=== PATIENT | female | born 1955 | race Asian ===

== ENCOUNTER 2017-04-08 09:10 | Emergency (ER) | payer OTHER, MEDICARE ==
[~2017-04-08] VITALS: Ht 152.4 cm; Wt 42.5 kg
[2017-04-08] MEDS ORDERED: CEFTRIAXONE PMX 1GM/50ML 50 ML IVPB ONE (10:00)
[2017-04-08] MEDS ORDERED: SODIUM CHLORIDE FLUSH 10ML SYR IVF ONE (10:00)
[2017-04-08 10:20] LABS: HEMATOCRIT 39.2 % (34.6-47.8); HEMOGLOBIN 12.3 g/dL (11.7-16.4); WHITE BLOOD COUNT 4.2 x10^3/uL (3.4-10)
[2017-04-08 10:31] LABS: BLOOD UREA NITROGEN 12 mg/dL (7-18)
[2017-04-08] MEDS ORDERED: CEFTRIAXONE PMX 1GM/50ML 50 ML ONE (10:47)
[2017-04-08 11:31] VITALS: BP 161/80
== END 2017-04-08 11:33 | disposition home or self-care (01) ==
LOC: ED 09:48
DX: L03.114 Cellulitis of left upper limb (principal); Z99.2 Dependence on renal dialysis; Z88.8 Allergy status to other drugs, medicaments and biological substances
CPT/HCPCS: 36415; 80048; 82040; 83605; 85025; 87040; 96365; 99284; J0696

== ENCOUNTER 2017-09-15 19:41 | Emergency (ER) | payer MEDICARE, BC ==
[~2017-09-15] VITALS: Ht 152.4 cm; Wt 42.5 kg
[2017-09-15] MEDS ORDERED: METO25TA35 PO (20:13)
[2017-09-15 20:22] LABS: BASOPHILS # (AUTO) 0.03 x10^3/uL (0-0.1); BASOPHILS % (AUTO) 1 % (0-1); EOSINOPHILS # (AUTO) 0.44 x10^3/uL (0-0.4); EOSINOPHILS % (AUTO) 7 % (1-7); LYMPHOCYTES # (AUTO) 2.54 x10^3/uL (1-3.4); LYMPHOCYTES % (AUTO) 40 % (22-44); MD NO; MEAN CORPUSCULAR HEMOGLOBIN 31.3 pg (27.0-34.8); MEAN CORPUSCULAR HGB CONC 34.2 g/dL (32.4-35.8); MEAN CORPUSCULAR VOLUME 91.7 fL (80-100); MEAN PLATELET VOLUME 6.7 fL (7.4-10.4); MONOCYTES # (AUTO) 0.48 x10^3/uL (0.2-0.8); MONOCYTES % (AUTO) 8 % (2-9); NEUTROPHILS % (AUTO) 45 % (42-75); PLATELET COUNT 334 x10^3/uL (130-400); RED BLOOD COUNT 3.99 x10^6/uL (3.82-5.3); RED CELL DISTRIBUTION WIDTH 13.1 % (9.6-15.2)
[2017-09-15 20:35] LABS: ALANINE AMINOTRANSFERASE 9 U/L (12-78); ALBUMIN 3.2 g/dL (3.4-5.0); ANION GAP 12 mmol/L (5-15); CALCIUM 8.7 mg/dL (8.5-10.1); CHLORIDE 95 mmol/L (98-107); CREATININE 3.83 mg/dL (0.55-1.02)
[2017-09-15 20:39] LABS: ALKALINE PHOSPHATASE 212 U/L (45-117); BILIRUBIN,TOTAL 0.3 mg/dL (0.2-1.0); TOTAL PROTEIN 8.7 g/dL (6.4-8.2); TROPONIN I < 0.015 ng/mL (0.000-0.045)
[2017-09-15 21:58] VITALS: BP 138/64
== END 2017-09-15 22:04 | disposition home or self-care (01) ==
LOC: ED 21:07
DX: M25.512 Pain in left shoulder (principal); N18.4 Chronic kidney disease, stage 4 (severe); Z99.2 Dependence on renal dialysis
CPT/HCPCS: 36415; 71046; 80053; 84484; 85025; 93005; 99285

== ENCOUNTER 2018-03-30 09:21 | Emergency (ER) | payer BC, MEDICARE ==
[~2018-03-30] VITALS: Ht 152.4 cm; Wt 41.5 kg
[~2018-03-30 09:21] MED LIST: METO25TA35 PO
[2018-03-30] MEDS ORDERED: SODIUM CHLORIDE FLUSH 10ML SYR IVF ONE (10:00)
[2018-03-30 10:07] LABS: BASOPHILS # (AUTO) 0.15 x10^3/uL (0-0.1); BASOPHILS % (AUTO) 2 % (0-1); EOSINOPHILS # (AUTO) 0.38 x10^3/uL (0-0.4); EOSINOPHILS % (AUTO) 4 % (1-7); LYMPHOCYTES # (AUTO) 1.96 x10^3/uL (1-3.4); LYMPHOCYTES % (AUTO) 20 % (22-44); MD NO; MEAN CORPUSCULAR HEMOGLOBIN 30.6 pg (27.0-34.8); MEAN CORPUSCULAR HGB CONC 33.5 g/dL (32.4-35.8); MEAN CORPUSCULAR VOLUME 91.3 fL (80-100); MEAN PLATELET VOLUME 6.9 fL (7.4-10.4); MONOCYTES # (AUTO) 0.73 x10^3/uL (0.2-0.8); MONOCYTES % (AUTO) 8 % (2-9); NEUTROPHILS # (AUTO) 6.48 x10^3/uL (1.8-6.8); NEUTROPHILS % (AUTO) 67 % (42-75); PLATELET COUNT 384 x10^3/uL (130-400); RED BLOOD COUNT 3.49 x10^6/uL (3.82-5.3); RED CELL DISTRIBUTION WIDTH 13.7 % (9.6-15.2)
[2018-03-30 10:16] LABS: ALBUMIN 3.1 g/dL (3.4-5.0); ANION GAP 12 mmol/L (5-15); CHLORIDE 91 mmol/L (98-107); CREATININE 8.34 mg/dL (0.55-1.02)
[2018-03-30] MEDS ORDERED: POLYETHYLENE GLYCOL 17 GM PACKET PO ONE (11:00)
[2018-03-30 11:19] LABS: CULTURE INDICATED? YES; MICROSCOPIC AUTO
[2018-03-30] MEDS ORDERED: POLYETHYLENE GLYCOL 17 GM PACKET ONE (11:31)
[2018-03-30 11:58] VITALS: BP 121/75
== END 2018-03-30 12:29 | disposition home or self-care (01) ==
LOC: ED 09:38
DX: K59.00 Constipation, unspecified (principal)
CPT/HCPCS: 36415; 74021; 80048; 81001; 82040; 85025; 87086; 99285

== ENCOUNTER → 2018-10-16 | Outpatient (CLI) | payer BC, MEDICARE | END | disposition home or self-care (01) | LOC: CFH 12:47 | PROVIDERS: ATTEND Family Medicine | DX: Z12.31 Encounter for screening mammogram for malignant neoplasm of breast (principal) | CPT/HCPCS: 77067 ==

== ENCOUNTER 2019-03-09 11:44 | Emergency (ER) | payer BC, OTHER, MEDICARE ==
[~2019-03-09] VITALS: Ht 152.4 cm; Wt 44.7 kg
[2019-03-09] MEDS ORDERED: MECLIZINE CHEWABLE 25 MG TAB PO ONE (12:30)
[2019-03-09] MEDS ORDERED: MECLIZINE CHEWABLE 25 MG TAB ONE (12:30)
[2019-03-09 12:48] LABS: BASOPHILS # (AUTO) 0.03 x10^3/uL (0-0.1); BASOPHILS % (AUTO) 1 % (0-1); EOSINOPHILS # (AUTO) 0.19 x10^3/uL (0-0.4); EOSINOPHILS % (AUTO) 3 % (1-7); LYMPHOCYTES % (AUTO) 29 % (22-44); MD NO; MEAN CORPUSCULAR HEMOGLOBIN 29.6 pg (27.0-34.8); MEAN CORPUSCULAR HGB CONC 32.8 g/dL (32.4-35.8); MEAN CORPUSCULAR VOLUME 90.2 fL (80-100); MEAN PLATELET VOLUME 6.7 fL (7.4-10.4); MONOCYTES # (AUTO) 0.42 x10^3/uL (0.2-0.8); MONOCYTES % (AUTO) 8 % (2-9); NEUTROPHILS % (AUTO) 60 % (42-75); PLATELET COUNT 306 x10^3/uL (130-400); RED BLOOD COUNT 3.72 x10^6/uL (3.82-5.3); RED CELL DISTRIBUTION WIDTH 14.8 % (9.6-15.2)
--- NOTE | 2019-03-09 12:51 | NUR ---
pt has co of dizziness, nausea, vomiting since this am. hx of dialysis.
[2019-03-09 12:58] LABS: ALANINE AMINOTRANSFERASE 17 U/L (12-78); ALBUMIN 3.4 g/dL (3.4-5.0); ANION GAP 11 mmol/L (5-15); CALCIUM 9.8 mg/dL (8.5-10.1); CHLORIDE 96 mmol/L (98-107); CREATININE 6.38 mg/dL (0.55-1.02)
[2019-03-09 13:01] LABS: ALKALINE PHOSPHATASE 84 U/L (45-117); BILIRUBIN,TOTAL 0.5 mg/dL (0.2-1.0); TOTAL PROTEIN 7.7 g/dL (6.4-8.2)
[2019-03-09 13:18] VITALS: BP 193/88
--- NOTE | 2019-03-09 13:29 | NUR ---
MD AWARE OF BP.
--- NOTE | 2019-03-09 14:26 | NUR ---
Patient/Caregiver given discharge instructions and they have confirmed that they understand the instructions. Patient ambulatory with steady gait.
== END 2019-03-09 14:30 | disposition home or self-care (01) ==
LOC: ED 14:04
DX: R42 Dizziness and giddiness (principal); I10 Essential (primary) hypertension; Z90.49 Acquired absence of other specified parts of digestive tract
CPT/HCPCS: 36415; 70450; 71045; 80053; 85025; 93005; 99284

== ENCOUNTER 2020-04-22 21:18 | Emergency (ER) | payer MEDICARE, OTHER ==
[~2020-04-22] VITALS: Ht 152.4 cm; Wt 42.1 kg
[2020-04-22] MEDS ORDERED: LOSARTAN PO (21:37)
[2020-04-22] MEDS ORDERED: AMLO-150 PO (21:37)
[2020-04-22] MEDS ORDERED: SEVE800T8 PO (21:37)
[2020-04-22] MEDS ORDERED: FEBU40TA PO (21:38)
[2020-04-22] MEDS ORDERED: CINA90TA PO (21:38)
--- NOTE | 2020-04-22 21:41 | NUR ---
PT CAME INTO ED DUE TO HIGH BP AND ONE EPISODE OF EMESIS ABOUT 30 MINS AGO. PT STATES SHE NORMALLY HAS HIGH PRESSURE BUT TONIGHT WAS EXTRA HIGH. PT HAS INCREASED BP AT 217/101, DENIES ANY OVERTON, ANOx4, GROSS NEURO INTACT, PULSES 2+. PT PLACED ON SPO2/BP/ECG MONITORING. WCTM. WAITING FOR LABS AND RAD RESULTS.
--- NOTE | 2020-04-22 21:50 | NUR ---
PT TO AND FROM RAD VIA [facility], NAD, NO CHANGE IN CONDITION, WCTM.
[2020-04-22 21:56] LABS: BASOPHILS # (AUTO) 0.08 x10^3/uL (0-0.1); BASOPHILS % (AUTO) 1 % (0-1); EOSINOPHILS # (AUTO) 0.51 x10^3/uL (0-0.4); EOSINOPHILS % (AUTO) 8 % (1-7); LYMPHOCYTES # (AUTO) 2.33 x10^3/uL (1-3.4); LYMPHOCYTES % (AUTO) 37 % (22-44); MD NO; MEAN CORPUSCULAR HEMOGLOBIN 29.5 pg (27.0-34.8); MEAN CORPUSCULAR HGB CONC 32.9 g/dL (32.4-35.8); MEAN CORPUSCULAR VOLUME 89.6 fL (80-100); MEAN PLATELET VOLUME 6.8 fL (7.4-10.4); MONOCYTES # (AUTO) 0.51 x10^3/uL (0.2-0.8); MONOCYTES % (AUTO) 8 % (2-9); NEUTROPHILS % (AUTO) 45 % (42-75); PLATELET COUNT 250 x10^3/uL (130-400); RED BLOOD COUNT 3.99 x10^6/uL (3.82-5.3); RED CELL DISTRIBUTION WIDTH 13.5 % (9.6-15.2)
[2020-04-22] MEDS ORDERED: hydrALAzine 20 MG/ML, 1ML IV ONE ×2 (22:00→22:30)
[2020-04-22] MEDS ORDERED: hydrALAzine 20 MG/ML, 1ML ONE ×2 (22:02→23:07)
[2020-04-22 22:08] LABS: ALBUMIN 3.3 g/dL (3.4-5.0); ANION GAP 6 mmol/L (5-15); CALCIUM 9.7 mg/dL (8.5-10.1); CHLORIDE 97 mmol/L (98-107); CREATININE 4.91 mg/dL (0.55-1.02)
[2020-04-22 22:11] LABS: TROPONIN I < 0.015 ng/mL (0.000-0.045)
--- NOTE | 2020-04-22 23:17 | NUR ---
PT RESTING ON GURNEY, NAD, BP DECREASED WITH INTERVENTIONS. PT TO BE DC'D. WCTM.
[2020-04-22 23:31] VITALS: BP 151/71
--- NOTE | 2020-04-22 23:32 | NUR ---
Patient given discharge instructions and they have confirmed that they understand the instructions. Patient ambulatory with steady gait. NAD, VSS, DENIES ADDITIONAL QUESTIONS OR NEEDS. NO PT BELONGINGS LEFT IN ROOM AFTER DC.
== END 2020-04-22 23:48 | disposition home or self-care (01) ==
LOC: ED 23:30
DX: I12.0 Hypertensive chronic kidney disease with stage 5 chronic kidney disease or end stage renal disease (principal); N18.6 End stage renal disease; R11.10 Vomiting, unspecified; R07.89 Other chest pain; I51.7 Cardiomegaly; Z90.89 Acquired absence of other organs; Z99.2 Dependence on renal dialysis
CPT/HCPCS: 36415; 71046; 80048; 82040; 84484; 85025; 93005; 96374; 96376; 99285; J0360